=== PATIENT | male | born 1975 | race Caucasian/White ===

== ENCOUNTER 2017-09-09 08:25 | Emergency (ER) | payer BC, OTHER ==
[2017-09-09 08:37] VITALS: BP 144/83; PULSE 66; TEMP 98.3; BMI 25.7
[2017-09-09] MEDS ORDERED: KETOROLAC TROMETHAMINE 60 MG/2 ML VIAL IM ONE (08:48)
--- NOTE | 2017-09-09 08:54 | PDOC ---
History of Present Illness - General Chief Complaint: Injury Stated Complaint: MID BACK BACK PAIN Time Seen by Provider: 09/09/17 08:27 History Source: Patient (Patient walked in complaining of mid back anup after slipping on ice and trying to hold on the door.No direct impact with his body) Exam Limitations: No Limitations - History of Present Illness Timing/Duration: 24 hours Severity: moderate Modifying Factors: improves with: cold therapy, rest Associated Symptoms: reports: denies symptoms Past History - Travel Traveled outside of the country in the last 30 days: No Close contact w/someone who was outside of country & ill: No - Past Medical History Allergies/Adverse Reactions: Allergies Allergy/AdvReac Type Severity Reaction Status Date / Time No Known Allergies Allergy Verified 09/09/17 08:26 Home Medications: Ambulatory Orders Acetaminophen [Tylenol] 650 mg PO PRN PRN 09/09/17 Methocarbamol [Robaxin -] 500 mg PO TID #14 tablet 09/09/17 COPD: No GI Disorders: Yes (REFLUX) - Immunization History Td Vaccination: Yes Immunization Up to Date: Yes - Suicide/Smoking/Psychosocial Hx Smoking Status: No Smoking History: Never smoked Years of Tobacco Use: 0 Have you smoked in the past 12 months: No Number of Cigarettes Smoked Daily: 0 Cigars Per Day: 0 Information on smoking cessation initiated: No Hx Alcohol Use: No Drug/Substance Use Hx: No Substance Use Type: Alcohol Review of Systems - Review of Systems Able to Perform ROS?: No Is the patient limited Bots[place]an proficient: No Constitutional: No: Symptoms Reported, See HPI, Chills, Diaphoresis, Fever, Loss of Appetite, Malaise, Night Sweats, Weakness, Weight Stable, Unintentional Wgt. Loss, Unexplained wgt Loss, Other HEENTM: No: Symptoms Reported, See HPI, Eye Pain, Blurred Vision, Tearing, Recent change in vision, Double Vision, Cataracts, Ear Pain, Ocular Prothesis, Ear Discharge, Nose Pain, Nose Congestion, Tinnitus, Nose Bleeding, Hearing Loss , Throat Pain, Throat Swelling, Mouth Pain, Dental Problems, Difficulty Swallowing, Mouth Swelling, Other Respiratory: No: Symptoms reported, See HPI, Cough, Orthopnea, Shortness of Breath, SOB with Exertion, SOB at Rest, Stridor, Wheezing, Productive cough, Hemoptysis, Other Cardiac (ROS): No: Symptoms Reported, See HPI, Chest Pain, Edema, Irregular Heart Rate, Lightheadedness, Palpitations, Syncope, Chest Tightness, Other ABD/GI: No: Symptoms Reported, See HPI, Abdominal Distended, Abd. Pain w/ defecation, Blood Streaked Bowels, Constipated, Diarrhea, Difficulty Swallowing , Nausea, Poor Appetite, Poor Fluid Intake, Rectal Bleeding, Vomiting, Indigestion, Abdominal cramping, Tarry Stools, Other Musculoskeletal: Yes: Symptoms Reported, See HPI Integumentary: No: Symptoms Reported, See HPI, Bruising, Change in Color, Change in Hair/Nails, Dryness, Erythema, Flushing, Lesions, Lumps, Pallor, Pruritus, Rash, Sweating, Other Neurological: Yes: See HPI All Other Systems: Reviewed and Negative *Physical Exam - Vital Signs Last Vital Signs Temp Pulse Resp BP Pulse Ox 98.3 F 66 20 144/83 97 09/09/17 08:26 09/09/17 08:26 09/09/17 08:26 09/09/17 08:26 09/09/17 08:26 - Physical Exam General Appearance: Yes: Nourished, Appropriately Dressed, Moderate Distress, Thin HEENT: positive: MAX Neck: positive: Supple. negative: Tender Respiratory/Chest: negative: Chest Tender, Lungs Clear, Normal Breath Sounds, Respiratory Distress, Accessory Muscle Use, Labored Respiration, Rapid RR, Decreased Breath Sounds, Paradoxal Breathing, Crackles, Rales, Rhonchi, Stridor , Wheezing, Hyperresonant, Dullness, Plerual Rub, Other Cardiovascular: positive: Regular Rate Musculoskeletal: positive: Vertebral Tenderness Extremity: positive: Normal Capillary Refill, Normal Range of Motion Integumentary: positive: Normal Color, Dry Neurologic: positive: Fully Oriented, Alert, Normal Mood/Affect, Normal Response , Motor Strength 5/5 Medical Decision Making - Medical Decision Making Patient received medication [facility] relief, d/c home 09/10/17 18:49 *DC/Admit/Observation/Transfer Diagnosis at time of Disposition: Back strain Qualifiers: Encounter type: initial encounter Qualified Code(s): S39.012A - Strain of muscle, fascia and tendon of lower back, initial encounter - Discharge Dispostion Disposition: HOME Condition at time of disposition: Stable Admit: No - Prescriptions Prescriptions: Methocarbamol [Robaxin -] 500 mg PO TID #14 tablet - Referrals - Patient Instructions Printed Discharge Instructions: DI for Back Strain or Sprain Additional Instructions: Motrin , Robaxin for pain, rest. Follow up with PMD - Post Discharge Activity
[2017-09-09] MEDS ORDERED: KETOROLAC TROMETHAMINE 60 MG/2 ML VIAL ONE (08:55)
== END 2017-09-09 09:06 | disposition home or self-care (01) ==
LOC: FER 08:25
PROC: 3E0233Z Introduction of Anti-inflammatory into Muscle, Percutaneous Approach (ICD-10-PCS; principal; 2017-09-09)
DX: S39.012A Strain of muscle, fascia and tendon of lower back, initial encounter (principal); W00.0XXA Fall on same level due to ice and snow, initial encounter; Y93.89 Activity, other specified; Y92.9 Unspecified place or not applicable
CPT/HCPCS: 99281-25

== ENCOUNTER 2018-04-10 18:48 | Emergency (ER) | payer OTHER ==
[2018-04-10 19:04] VITALS: BP 129/84; PULSE 80; TEMP 98.5; BMI 25.4
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
== END 2018-04-10 20:06 | disposition home or self-care (01) ==
LOC: JERFT 18:48
DX: S83.8X2A Sprain of other specified parts of left knee, initial encounter (principal); Z77.21 Contact with and (suspected) exposure to potentially hazardous body fluids; X50.0XXA Overexertion from strenuous movement or load, initial encounter; Y93.F2 Activity, caregiving, lifting; Y92.828 Other wilderness area as the place of occurrence of the external cause; Y99.0 Civilian activity done for income or pay
CPT/HCPCS: 99281-25

== ENCOUNTER 2019-08-02 15:14 | Emergency (ER) | payer OTHER ==
[2019-08-02 15:20] VITALS: BP 121/81; PULSE 111; TEMP 97.9; BMI 25.1
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
== END 2019-08-02 16:16 | disposition home or self-care (01) ==
LOC: JERFT 15:14
DX: S83.91XA Sprain of unspecified site of right knee, initial encounter (principal); Y35.891A Legal intervention involving other specified means, law enforcement official injured, initial encounter; Y93.89 Activity, other specified; Y92.410 Unspecified street and highway as the place of occurrence of the external cause; Y99.0 Civilian activity done for income or pay; K21.9 Gastro-esophageal reflux disease without esophagitis
CPT/HCPCS: 99282-25